=== PATIENT | male | born 1955 | race African-American/Black ===

== ENCOUNTER 2019-09-06 19:17 | Inpatient (IN) ==
[2019-09-06] MEDS ORDERED: methylPREDNISolone SOD SUC 125 MG/2 ML VIAL IV STA (19:44)
[2019-09-06] MEDS ORDERED: PIPERACILLIN/TAZOBACTAM 3,375 MG in SODIUM CHLORIDE 0.9% 100 ML IV STA (19:44)
[2019-09-06] MEDS ORDERED: VANCOMYCIN INJ 750 MG in SODIUM CHLORIDE 0.9% 250 ML IV STA (19:44)
[2019-09-06 19:58] LABS: Basophils # 0.1 10*3/uL (0.0-0.2); Basophils % 0.5 % (0.0-0.8); Eosinophils % 0.2 % (0.00-10.9); Hemoglobin 13.8 GM/DL (14.0-18.0); Immature Granulocytes % 0.4 %; Immature Granulocytes Absolute 0.06 #; Lymphocytes # 1.4 10*3/uL (1.4-4.0); Lymphocytes % 9.6 % (21.2-54.2); Mean Corpuscular HGB Conc 30.7 GM/DL (32-36); Mean Corpuscular Volume 95.1 FL (87-102); Mean Platelet Volume 9.7 FL (9.6-12.0); Neutrophils % 79.3 % (38.7-73.9); Platelet Count 291 T/CUMM (130-400); Red Blood Count 4.73 MC/CUMM (3.8-5.5); Red Cell Distribution Width 14.6 % (9.3-17.3); White Blood Count 14.8 T/CUMM (4-12)
[2019-09-06] MEDS ORDERED: ALBUTEROL NEB SOLN 5 MG/ML 20 ML/BOTTLE CONT NEB SCH (20:00)
[2019-09-06 20:18] LABS: Albumin 2.7 G/DL (3.4-5.0); Bilirubin,Total 0.7 MG/DL (0.2-1.0); Calcium 10.7 MG/DL (8.5-10.1); Osmolality,Calculated 291.8 MOS/KG (273-304); Total Protein 7.9 G/DL (6.4-8.3)
[2019-09-06 20:23] LABS: Troponin I 0.217 NG/ML (0.00-0.045)
[2019-09-06 20:30] LABS: PT Patient Result 10.7 SECS (9.6-12.2); Partial Thromboplastin Time 28.4 SECS (20.8-36.0)
[2019-09-06] MEDS ORDERED: CLOPIDOGREL 300 MG TABLET PO ONE (21:13)
[2019-09-06] MEDS ORDERED: CLOPIDOGREL 75 MG TABLET PO ONE (21:13)
[2019-09-06 21:47] LABS: Risk Ratio 2.8; Thyroid Stimulating Hormone 1.31 uIU/ml (0.358-3.74)
[2019-09-06] MEDS: ASPIRIN CHEW 81 MG TABLET PO SCH (22:28)
[2019-09-07] MEDS: ALBUTEROL/IPRATROPIUM 3 ML NEB RESP TX SCH ×4 (01:20→18:59)
[2019-09-07] MEDS: ENOXAPARIN 60 MG/0.6 ML SYRINGE SUBCUT SCH ×2 (01:30→14:01)
[2019-09-07] MEDS: PIPERACILLIN/TAZOBACTAM 3,375 MG in SODIUM CHLORIDE 0.9% 100 ML IV SCH ×3 (06:10→20:48)
[2019-09-07 06:15] LABS: Basophils % 0.1 % (0.0-0.8); Hematocrit 41.3 VOL% (42.0-52.0); Hemoglobin 12.5 GM/DL (14.0-18.0); Immature Granulocytes % 0.6 %; Immature Granulocytes Absolute 0.07 #; Lymphocytes # 0.4 10*3/uL (1.4-4.0); Lymphocytes % 3.3 % (21.2-54.2); Mean Corpuscular HGB Conc 30.3 GM/DL (32-36); Mean Corpuscular Volume 94.9 FL (87-102); Mean Platelet Volume 10.1 FL (9.6-12.0); Monocytes % 2.1 % (1.7-12.7); Neutrophils % 93.9 % (38.7-73.9); Platelet Count 339 T/CUMM (130-400); Red Blood Count 4.35 MC/CUMM (3.8-5.5); Red Cell Distribution Width 14.6 % (9.3-17.3); White Blood Count 12.2 T/CUMM (4-12)
[2019-09-07 06:35] LABS: Albumin 2.6 G/DL (3.4-5.0); Band Neutrophils 3 % (0-10); Bilirubin,Total 0.5 MG/DL (0.2-1.0); Calcium 10.5 MG/DL (8.5-10.1); Lymphocytes 1 % (20-55); Osmolality,Calculated 300.6 MOS/KG (273-304); Segmented Neutrophils 95 % (50-85); Total Cells Counted 100; Total Protein 7.8 G/DL (6.4-8.3)
[2019-09-07 06:36] LABS: Hypochromasia 1+; Macrocytosis Slight
[2019-09-07] MEDS ORDERED: INFLUENZA VIRUS VACCINE 0.5 ML SYRINGE IM ONE (07:42)
[2019-09-07] MEDS: MENTHOL/ZINC OXIDE OINT 71 GM JAR TOP SCH ×3 (09:22→20:55)
[2019-09-07 09:28] LABS: Troponin I 0.139 NG/ML (0.00-0.045)
[2019-09-07 11:10] LABS: Troponin I 0.118 NG/ML (0.00-0.045)
[2019-09-07 13:28] LABS: Apearance,Urine CLOUDY (Clear); Bilirubin,Urine Negative (Negative); Blood, Urine Negative (Negative); Glucose,Urine (UA) Negative (Negative); Ketones,Urine Negative (Negative); Mucus,Urine Occasional /LPF (Occasional); Nitrite,Urine Negative (Negative); Protein,Urine Negative; RBC,Urine <1 /HPF (0-4); Squamous Epithelial Cell,Urine Occasional /HPF (0-10); Urine Color Yellow (Yellow); Urine Urobilinogen < 2.0 EU/DL (0.2-1.0); WBC,Urine 3 /HPF (0-6)
[2019-09-07] MEDS: VANCOMYCIN INJ 1,000 MG in SODIUM CHLORIDE 0.9% 250 ML IV SCH (13:58)
[2019-09-07] MEDS: BACLOFEN 10 MG TABLET PO SCH ×2 (13:59→21:20)
[2019-09-07] MEDS: ASPIRIN CHEW 81 MG TABLET PO SCH (13:59)
[2019-09-07] MEDS: ZINC SULFATE 220 MG CAPSULE PO SCH (13:59)
[2019-09-07] MEDS: LISINOPRIL/HCTZ 20-25 MG TABLET PO SCH (13:59)
[2019-09-07] MEDS: PANTOPRAZOLE 40 MG TABLET PO SCH (14:00)
[2019-09-07] MEDS: METOPROLOL SUCCINATE XL 25 MG TABLET PO SCH (14:00)
[2019-09-07] MEDS: amLODIPine 5 MG TABLET PO SCH (16:12)
[2019-09-07] MEDS: SODIUM CHLORIDE 0.9% 1,000 ML IV SCH (20:49)
[2019-09-08] MEDS: VANCOMYCIN INJ 1,000 MG in SODIUM CHLORIDE 0.9% 250 ML IV SCH ×2 (00:05→12:24)
[2019-09-08] MEDS: ALBUTEROL/IPRATROPIUM 3 ML NEB RESP TX SCH ×4 (00:42→18:58)
[2019-09-08] MEDS: PIPERACILLIN/TAZOBACTAM 3,375 MG in SODIUM CHLORIDE 0.9% 100 ML IV SCH ×3 (05:10→22:41)
[2019-09-08 07:00] LABS: Basophils % 0.2 % (0.0-0.8); Hematocrit 37.4 VOL% (42.0-52.0); Hemoglobin 11.4 GM/DL (14.0-18.0); Immature Granulocytes % 0.8 %; Immature Granulocytes Absolute 0.15 #; Lymphocytes # 1.6 10*3/uL (1.4-4.0); Mean Corpuscular HGB Conc 30.5 GM/DL (32-36); Mean Corpuscular Volume 96.1 FL (87-102); Mean Platelet Volume 9.4 FL (9.6-12.0); Monocytes % 12.1 % (1.7-12.7); Neutrophils % 77.9 % (38.7-73.9); Platelet Count 322 T/CUMM (130-400); Red Blood Count 3.89 MC/CUMM (3.8-5.5); Red Cell Distribution Width 14.8 % (9.3-17.3); White Blood Count 17.7 T/CUMM (4-12)
[2019-09-08 07:20] LABS: Calcium 10.2 MG/DL (8.5-10.1); Osmolality,Calculated 308.7 MOS/KG (273-304)
[2019-09-08] MEDS: SODIUM CHLORIDE 0.9% 1,000 ML IV SCH (07:33)
[2019-09-08] MEDS ORDERED: POTASSIUM CHLORIDE 20 MEQ/15 ML UDCUP PO ONE (09:21)
[2019-09-08] MEDS ORDERED: POTASSIUM CHLORIDE 20 MEQ TABLET PO ONE ×2 (09:30→18:30)
[2019-09-08] MEDS: LISINOPRIL/HCTZ 20-25 MG TABLET PO SCH (10:05)
[2019-09-08] MEDS: BACLOFEN 10 MG TABLET PO SCH ×2 (10:06→22:41)
[2019-09-08] MEDS: ASPIRIN CHEW 81 MG TABLET PO SCH (10:06)
[2019-09-08] MEDS: PANTOPRAZOLE 40 MG TABLET PO SCH (10:06)
[2019-09-08] MEDS: ZINC SULFATE 220 MG CAPSULE PO SCH (10:06)
[2019-09-08] MEDS: amLODIPine 5 MG TABLET PO SCH (10:06)
[2019-09-08] MEDS: METOPROLOL SUCCINATE XL 25 MG TABLET PO SCH (10:07)
[2019-09-08] MEDS: DEXTROSE 5% 1,000 ML IV SCH (11:35)
[2019-09-08] MEDS: MENTHOL/ZINC OXIDE OINT 71 GM JAR TOP SCH ×3 (12:12→22:41)
[2019-09-09] MEDS: VANCOMYCIN INJ 1,000 MG in SODIUM CHLORIDE 0.9% 250 ML IV SCH (00:25)
[2019-09-09] MEDS: ALBUTEROL/IPRATROPIUM 3 ML NEB RESP TX SCH ×4 (01:48→20:03)
[2019-09-09] MEDS: PIPERACILLIN/TAZOBACTAM 3,375 MG in SODIUM CHLORIDE 0.9% 100 ML IV SCH ×3 (06:36→20:26)
[2019-09-09] MEDS: ZINC SULFATE 220 MG CAPSULE PO SCH (12:09)
[2019-09-09] MEDS: LISINOPRIL/HCTZ 20-25 MG TABLET PO SCH (12:09)
[2019-09-09] MEDS: ASPIRIN CHEW 81 MG TABLET PO SCH (12:09)
[2019-09-09] MEDS: MENTHOL/ZINC OXIDE OINT 71 GM JAR TOP SCH ×3 (12:09→20:26)
[2019-09-09] MEDS: BACLOFEN 10 MG TABLET PO SCH ×2 (12:10→20:32)
[2019-09-09] MEDS: PANTOPRAZOLE 40 MG TABLET PO SCH (12:11)
[2019-09-09] MEDS: DEXTROSE 5% 1,000 ML IV SCH (12:11)
[2019-09-09] MEDS: amLODIPine 5 MG TABLET PO SCH (12:11)
[2019-09-09] MEDS: METOPROLOL SUCCINATE XL 25 MG TABLET PO SCH (12:11)
[2019-09-09] MEDS: ROSUVASTATIN 20 MG TABLET PO SCH (15:41)
[2019-09-09] MEDS ORDERED: POTASSIUM CHLORIDE 20 MEQ/15 ML UDCUP PO ONE (17:32)
[2019-09-10] MEDS: ALBUTEROL/IPRATROPIUM 3 ML NEB RESP TX SCH ×4 (00:20→20:54)
[2019-09-10] MEDS: VANCOMYCIN INJ 1,000 MG in SODIUM CHLORIDE 0.9% 250 ML IV SCH ×2 (00:43→18:07)
[2019-09-10] MEDS: BACLOFEN 10 MG TABLET PO SCH ×3 (00:44→20:53)
[2019-09-10] MEDS: DEXTROSE 5% 1,000 ML IV SCH ×3 (02:25→21:32)
[2019-09-10 05:16] LABS: Basophils % 0.2 % (0.0-0.8); Hematocrit 38.5 VOL% (42.0-52.0); Hemoglobin 11.9 GM/DL (14.0-18.0); Immature Granulocytes Absolute 0.18 #; Lymphocytes # 1.4 10*3/uL (1.4-4.0); Lymphocytes % 7.6 % (21.2-54.2); Mean Corpuscular HGB Conc 30.9 GM/DL (32-36); Mean Corpuscular Volume 93.9 FL (87-102); Mean Platelet Volume 10.2 FL (9.6-12.0); Monocytes % 8.3 % (1.7-12.7); Neutrophils % 82.9 % (38.7-73.9); Platelet Count 338 T/CUMM (130-400); Red Cell Distribution Width 14.9 % (9.3-17.3); White Blood Count 18.2 T/CUMM (4-12)
[2019-09-10 05:52] LABS: Calcium 9.9 MG/DL (8.5-10.1)
[2019-09-10] MEDS: PIPERACILLIN/TAZOBACTAM 3,375 MG in SODIUM CHLORIDE 0.9% 100 ML IV SCH ×3 (06:00→21:09)
[2019-09-10 06:08] LABS: Albumin 2.3 G/DL (3.4-5.0); Bilirubin,Direct 0.17 MG/DL (0.0-0.20); Bilirubin,Indirect 0.7 MG/DL (0.0-1.0); Bilirubin,Total 0.9 MG/DL (0.2-1.0); Total Protein 6.5 G/DL (6.4-8.3)
[2019-09-10] MEDS: LISINOPRIL/HCTZ 20-25 MG TABLET PO SCH (10:44)
[2019-09-10] MEDS: ZINC SULFATE 220 MG CAPSULE PO SCH (10:44)
[2019-09-10] MEDS: ASPIRIN CHEW 81 MG TABLET PO SCH (10:45)
[2019-09-10] MEDS: amLODIPine 10 MG TABLET PO SCH (10:45)
[2019-09-10] MEDS: MENTHOL/ZINC OXIDE OINT 71 GM JAR TOP SCH ×3 (10:45→21:09)
[2019-09-10] MEDS: ROSUVASTATIN 20 MG TABLET PO SCH (10:45)
[2019-09-10] MEDS: PANTOPRAZOLE 40 MG TABLET PO SCH (10:46)
[2019-09-10] MEDS: METOPROLOL SUCCINATE XL 25 MG TABLET PO SCH (10:46)
[2019-09-10] MEDS: hydrALAZINE 20 MG/1 ML VIAL IV PRN (10:48)
[2019-09-10] MEDS ORDERED: POTASSIUM CHLORIDE 20 MEQ/15 ML UDCUP PO ONE (13:22)
[2019-09-11] MEDS: hydrALAZINE 20 MG/1 ML VIAL IV PRN (00:46)
[2019-09-11] MEDS: ALBUTEROL/IPRATROPIUM 3 ML NEB RESP TX SCH ×4 (01:57→20:20)
[2019-09-11 04:03] LABS: Basophils % 0.2 % (0.0-0.8); Eosinophils % 0.2 % (0.00-10.9); Hemoglobin 13.3 GM/DL (14.0-18.0); Immature Granulocytes % 1.9 %; Immature Granulocytes Absolute 0.34 #; Lymphocytes # 1.6 10*3/uL (1.4-4.0); Lymphocytes % 8.5 % (21.2-54.2); Mean Corpuscular HGB Conc 30.9 GM/DL (32-36); Mean Corpuscular Volume 93.3 FL (87-102); Mean Platelet Volume 9.8 FL (9.6-12.0); Monocytes % 7.1 % (1.7-12.7); Neutrophils % 82.1 % (38.7-73.9); Platelet Count 377 T/CUMM (130-400); Red Blood Count 4.61 MC/CUMM (3.8-5.5); Red Cell Distribution Width 15.2 % (9.3-17.3); White Blood Count 18.3 T/CUMM (4-12)
[2019-09-11 04:20] LABS: Calcium 10.5 MG/DL (8.5-10.1); Osmolality,Calculated 295.3 MOS/KG (273-304)
[2019-09-11] MEDS: PIPERACILLIN/TAZOBACTAM 3,375 MG in SODIUM CHLORIDE 0.9% 100 ML IV SCH ×3 (05:13→21:15)
[2019-09-11] MEDS: ZINC SULFATE 220 MG CAPSULE PO SCH (09:36)
[2019-09-11] MEDS: PANTOPRAZOLE 40 MG TABLET PO SCH (09:36)
[2019-09-11] MEDS: BACLOFEN 10 MG TABLET PO SCH ×2 (09:36→21:09)
[2019-09-11] MEDS: amLODIPine 10 MG TABLET PO SCH (09:36)
[2019-09-11] MEDS: ROSUVASTATIN 20 MG TABLET PO SCH (09:36)
[2019-09-11] MEDS: MENTHOL/ZINC OXIDE OINT 71 GM JAR TOP SCH ×3 (09:36→21:10)
[2019-09-11] MEDS: ASPIRIN CHEW 81 MG TABLET PO SCH (09:37)
[2019-09-11] MEDS: METOPROLOL SUCCINATE XL 25 MG TABLET PO SCH (09:38)
[2019-09-11] MEDS: LISINOPRIL/HCTZ 20-25 MG TABLET PO SCH (09:44)
[2019-09-11] MEDS: POTASSIUM CHLORIDE 20 MEQ TABLET PO PRN ×2 (09:51→13:20)
[2019-09-11] MEDS: ONDANSETRON 4 MG/2 ML VIAL IV PRN (09:51)
[2019-09-11] MEDS ORDERED: POTASSIUM CHLORIDE 20 MEQ/15 ML UDCUP PO ONE (10:24)
[2019-09-11] MEDS: VANCOMYCIN INJ 1,000 MG in SODIUM CHLORIDE 0.9% 250 ML IV SCH (12:02)
[2019-09-11] MEDS: POTASSIUM CHLORIDE 20 MEQ/15 ML UDCUP PO PRN ×3 (13:20→18:23)
[2019-09-11] MEDS: DEXTROSE 5% 1,000 ML IV SCH (18:22)
[2019-09-12] MEDS: ALBUTEROL/IPRATROPIUM 3 ML NEB RESP TX SCH ×4 (01:12→18:52)
[2019-09-12 04:18] LABS: Basophils % 0.2 % (0.0-0.8); Eosinophils # 0.1 10*3/uL (0.0-0.87); Eosinophils % 0.5 % (0.00-10.9); Hematocrit 40.9 VOL% (42.0-52.0); Immature Granulocytes % 1.2 %; Lymphocytes # 1.6 10*3/uL (1.4-4.0); Lymphocytes % 9.9 % (21.2-54.2); Mean Corpuscular HGB Conc 29.8 GM/DL (32-36); Mean Corpuscular Volume 96.2 FL (87-102); Mean Platelet Volume 9.5 FL (9.6-12.0); Monocytes % 8.2 % (1.7-12.7); Platelet Count 407 T/CUMM (130-400); Red Blood Count 4.25 MC/CUMM (3.8-5.5); Red Cell Distribution Width 15.3 % (9.3-17.3); White Blood Count 16.5 T/CUMM (4-12)
[2019-09-12 04:37] LABS: Calcium 9.9 MG/DL (8.5-10.1); Osmolality,Calculated 295.3 MOS/KG (273-304)
[2019-09-12] MEDS: PIPERACILLIN/TAZOBACTAM 3,375 MG in SODIUM CHLORIDE 0.9% 100 ML IV SCH ×3 (04:46→21:06)
[2019-09-12 05:16] LABS: Hemoglobin 12.3 GM/DL (14.0-18.0)
[2019-09-12] MEDS: ASPIRIN CHEW 81 MG TABLET PO SCH (08:34)
[2019-09-12] MEDS: ROSUVASTATIN 20 MG TABLET PO SCH (08:34)
[2019-09-12] MEDS: LISINOPRIL/HCTZ 20-25 MG TABLET PO SCH (08:34)
[2019-09-12] MEDS: POTASSIUM CHLORIDE 20 MEQ TABLET PO PRN (08:35)
[2019-09-12] MEDS: BACLOFEN 10 MG TABLET PO SCH ×2 (08:35→21:05)
[2019-09-12] MEDS: amLODIPine 10 MG TABLET PO SCH (08:35)
[2019-09-12] MEDS: METOPROLOL SUCCINATE XL 25 MG TABLET PO SCH (08:35)
[2019-09-12] MEDS: PANTOPRAZOLE 40 MG TABLET PO SCH (08:35)
[2019-09-12] MEDS: ZINC SULFATE 220 MG CAPSULE PO SCH (08:45)
[2019-09-12] MEDS: ONDANSETRON 4 MG/2 ML VIAL IV PRN (08:56)
[2019-09-12] MEDS: VANCOMYCIN INJ 1,000 MG in SODIUM CHLORIDE 0.9% 250 ML IV SCH (09:25)
[2019-09-12] MEDS: MENTHOL/ZINC OXIDE OINT 71 GM JAR TOP SCH ×3 (09:33→21:05)
[2019-09-12] MEDS: DEXTROSE 5% 1,000 ML IV SCH (21:35)
[2019-09-13] MEDS: VANCOMYCIN INJ 1,000 MG in SODIUM CHLORIDE 0.9% 250 ML IV SCH ×2 (00:26→17:48)
[2019-09-13] MEDS: ALBUTEROL/IPRATROPIUM 3 ML NEB RESP TX SCH ×4 (01:19→19:52)
[2019-09-13] MEDS: PIPERACILLIN/TAZOBACTAM 3,375 MG in SODIUM CHLORIDE 0.9% 100 ML IV SCH ×3 (04:59→21:17)
[2019-09-13 05:27] LABS: Basophils % 0.2 % (0.0-0.8); Eosinophils # 0.2 10*3/uL (0.0-0.87); Eosinophils % 1.3 % (0.00-10.9); Hematocrit 43.4 VOL% (42.0-52.0); Immature Granulocytes % 1.1 %; Immature Granulocytes Absolute 0.18 #; Lymphocytes # 1.8 10*3/uL (1.4-4.0); Lymphocytes % 10.7 % (21.2-54.2); Mean Corpuscular HGB Conc 29.5 GM/DL (32-36); Mean Corpuscular Volume 97.3 FL (87-102); Mean Platelet Volume 9.8 FL (9.6-12.0); Monocytes % 8.3 % (1.7-12.7); Neutrophils % 78.4 % (38.7-73.9); Platelet Count 414 T/CUMM (130-400); Red Blood Count 4.46 MC/CUMM (3.8-5.5); Red Cell Distribution Width 15.1 % (9.3-17.3)
[2019-09-13 05:28] LABS: Hemoglobin 12.8 GM/DL (14.0-18.0)
[2019-09-13 05:28] LABS: Calcium 9.9 MG/DL (8.5-10.1); Osmolality,Calculated 280.3 MOS/KG (273-304)
[2019-09-13] MEDS: ZINC SULFATE 220 MG CAPSULE PO SCH (09:30)
[2019-09-13] MEDS: ASPIRIN CHEW 81 MG TABLET PO SCH (09:30)
[2019-09-13] MEDS: ROSUVASTATIN 20 MG TABLET PO SCH (09:30)
[2019-09-13] MEDS: BACLOFEN 10 MG TABLET PO SCH ×2 (09:31→21:17)
[2019-09-13] MEDS: amLODIPine 10 MG TABLET PO SCH (09:31)
[2019-09-13] MEDS: PANTOPRAZOLE 40 MG TABLET PO SCH (09:31)
[2019-09-13] MEDS: LISINOPRIL/HCTZ 20-25 MG TABLET PO SCH (09:31)
[2019-09-13] MEDS: METOPROLOL SUCCINATE XL 25 MG TABLET PO SCH (09:32)
[2019-09-13] MEDS: MENTHOL/ZINC OXIDE OINT 71 GM JAR TOP SCH ×3 (10:15→21:17)
[2019-09-13] MEDS: DEXTROSE 5% 1,000 ML IV SCH (18:56)
[2019-09-14] MEDS: ALBUTEROL/IPRATROPIUM 3 ML NEB RESP TX SCH ×4 (01:25→19:18)
[2019-09-14] MEDS: PIPERACILLIN/TAZOBACTAM 3,375 MG in SODIUM CHLORIDE 0.9% 100 ML IV SCH ×2 (04:19→15:50)
[2019-09-14 04:41] LABS: PT Patient Result 11.1 SECS (9.6-12.2)
[2019-09-14 04:48] LABS: Basophils # 0.1 10*3/uL (0.0-0.2); Basophils % 0.3 % (0.0-0.8); Eosinophils # 0.1 10*3/uL (0.0-0.87); Eosinophils % 0.7 % (0.00-10.9); Hemoglobin 12.8 GM/DL (14.0-18.0); Immature Granulocytes % 1.9 %; Immature Granulocytes Absolute 0.41 #; Lymphocytes # 1.4 10*3/uL (1.4-4.0); Lymphocytes % 6.7 % (21.2-54.2); Mean Corpuscular Volume 92.2 FL (87-102); Mean Platelet Volume 9.9 FL (9.6-12.0); Monocytes % 6.5 % (1.7-12.7); Neutrophils % 83.9 % (38.7-73.9); Platelet Count 424 T/CUMM (130-400); Red Blood Count 4.34 MC/CUMM (3.8-5.5); Red Cell Distribution Width 14.6 % (9.3-17.3); White Blood Count 21.5 T/CUMM (4-12)
[2019-09-14 04:53] LABS: Eosinophils 2 % (0-10); Lymphocytes 8 % (20-55); Platelet Estimate Adequate; Segmented Neutrophils 87 % (50-85); Total Cells Counted 100
[2019-09-14] MEDS ORDERED: ETOMIDATE 20 MG/10 ML VIAL IV ONE (09:00)
[2019-09-14] MEDS ORDERED: LIDOCAINE 100 MG/5 ML SYRINGE ONE (09:00)
[2019-09-14] MEDS: LACTATED RINGERS 1,000 ML IV SCH (11:17)
[2019-09-14] MEDS: LISINOPRIL/HCTZ 20-25 MG TABLET PO SCH (13:07)
[2019-09-14] MEDS: MENTHOL/ZINC OXIDE OINT 71 GM JAR TOP SCH ×3 (13:08→20:37)
[2019-09-14] MEDS: ROSUVASTATIN 20 MG TABLET PO SCH (13:08)
[2019-09-14] MEDS: ZINC SULFATE 220 MG CAPSULE PO SCH (13:08)
[2019-09-14] MEDS: ASPIRIN CHEW 81 MG TABLET PO SCH (13:08)
[2019-09-14] MEDS: BACLOFEN 10 MG TABLET PO SCH ×2 (13:09→20:37)
[2019-09-14] MEDS: PANTOPRAZOLE 40 MG TABLET PO SCH (13:09)
[2019-09-14] MEDS: METOPROLOL SUCCINATE XL 25 MG TABLET PO SCH (13:09)
[2019-09-14] MEDS: amLODIPine 10 MG TABLET PO SCH (13:09)
[2019-09-14] MEDS: VANCOMYCIN INJ 1,000 MG in SODIUM CHLORIDE 0.9% 250 ML IV SCH (13:52)
[2019-09-15 04:24] LABS: Basophils # 0.1 10*3/uL (0.0-0.2); Basophils % 0.3 % (0.0-0.8); Eosinophils # 0.1 10*3/uL (0.0-0.87); Eosinophils % 0.4 % (0.00-10.9); Hematocrit 41.7 VOL% (42.0-52.0); Hemoglobin 12.8 GM/DL (14.0-18.0); Immature Granulocytes Absolute 0.22 #; Lymphocytes # 1.7 10*3/uL (1.4-4.0); Lymphocytes % 7.9 % (21.2-54.2); Mean Corpuscular HGB Conc 30.7 GM/DL (32-36); Mean Corpuscular Volume 93.1 FL (87-102); Mean Platelet Volume 9.6 FL (9.6-12.0); Monocytes % 8.1 % (1.7-12.7); Neutrophils % 82.3 % (38.7-73.9); Platelet Count 447 T/CUMM (130-400); Red Blood Count 4.48 MC/CUMM (3.8-5.5); Red Cell Distribution Width 14.8 % (9.3-17.3)
[2019-09-15 04:44] LABS: Calcium 9.7 MG/DL (8.5-10.1); Osmolality,Calculated 276.5 MOS/KG (273-304)
[2019-09-15 04:50] LABS: Hypochromasia 1+
[2019-09-15 04:51] LABS: Microcytosis Slight; Platelet Estimate Increased
[2019-09-15] MEDS: ALBUTEROL/IPRATROPIUM 3 ML NEB RESP TX SCH ×4 (06:52→19:40)
[2019-09-15] MEDS: POTASSIUM CHLORIDE 20 MEQ TABLET PO PRN ×4 (08:48→16:46)
[2019-09-15] MEDS: ASPIRIN CHEW 81 MG TABLET PO SCH (08:49)
[2019-09-15] MEDS: PANTOPRAZOLE 40 MG TABLET PO SCH (08:50)
[2019-09-15] MEDS: BACLOFEN 10 MG TABLET PO SCH ×2 (08:50→21:28)
[2019-09-15] MEDS: amLODIPine 10 MG TABLET PO SCH (08:50)
[2019-09-15] MEDS: METOPROLOL SUCCINATE XL 25 MG TABLET PO SCH (08:50)
[2019-09-15] MEDS: ROSUVASTATIN 20 MG TABLET PO SCH (08:51)
[2019-09-15] MEDS: MENTHOL/ZINC OXIDE OINT 71 GM JAR TOP SCH ×3 (08:52→21:28)
[2019-09-15] MEDS: ZINC SULFATE 220 MG CAPSULE PO SCH (08:55)
[2019-09-15] MEDS: LISINOPRIL/HCTZ 20-25 MG TABLET PO SCH (08:55)
[2019-09-15] MEDS: LACTATED RINGERS 1,000 ML IV SCH (09:50)
[2019-09-15 11:06] LABS: Prealbumin 14.1 MG/DL (20-40)
[2019-09-15] MEDS ORDERED: MAGNESIUM SULF RIDER 2 GM in PREMIX 1 EACH IV ONE (17:21)
[2019-09-16] MEDS: ALBUTEROL/IPRATROPIUM 3 ML NEB RESP TX SCH ×4 (00:25→19:16)
[2019-09-16] MEDS: POTASSIUM CHLORIDE 20 MEQ TABLET PO PRN (03:57)
[2019-09-16 04:32] LABS: Basophils # 0.1 10*3/uL (0.0-0.2); Basophils % 0.2 % (0.0-0.8); Eosinophils # 0.2 10*3/uL (0.0-0.87); Eosinophils % 0.9 % (0.00-10.9); Hematocrit 40.1 VOL% (42.0-52.0); Hemoglobin 12.3 GM/DL (14.0-18.0); Lymphocytes # 1.5 10*3/uL (1.4-4.0); Lymphocytes % 7.2 % (21.2-54.2); Mean Corpuscular HGB Conc 30.7 GM/DL (32-36); Mean Corpuscular Volume 92.4 FL (87-102); Mean Platelet Volume 9.6 FL (9.6-12.0); Monocytes % 7.1 % (1.7-12.7); Neutrophils % 83.6 % (38.7-73.9); Platelet Count 455 T/CUMM (130-400); Red Blood Count 4.34 MC/CUMM (3.8-5.5); Red Cell Distribution Width 14.6 % (9.3-17.3); White Blood Count 20.5 T/CUMM (4-12)
[2019-09-16 04:54] LABS: Eosinophils 1 % (0-10); Hypochromasia Slight; Lymphocytes 5 % (20-55); Platelet Estimate Adequate; Segmented Neutrophils 87 % (50-85); Total Cells Counted 100
[2019-09-16 04:55] LABS: Microcytosis Slight
[2019-09-16 05:00] LABS: Calcium 9.3 MG/DL (8.5-10.1); Osmolality,Calculated 278.7 MOS/KG (273-304); Prealbumin 14.2 MG/DL (20-40)
[2019-09-16] MEDS: LACTATED RINGERS 1,000 ML IV SCH (08:44)
[2019-09-16] MEDS: METOPROLOL SUCCINATE XL 25 MG TABLET PO SCH (09:08)
[2019-09-16] MEDS: BACLOFEN 10 MG TABLET PO SCH ×2 (09:08→21:06)
[2019-09-16] MEDS: PANTOPRAZOLE 40 MG TABLET PO SCH (09:08)
[2019-09-16] MEDS: LISINOPRIL/HCTZ 10-12.5 MG TABLET PO SCH (09:08)
[2019-09-16] MEDS: ZINC SULFATE 220 MG CAPSULE PO SCH (09:08)
[2019-09-16] MEDS: ROSUVASTATIN 20 MG TABLET PO SCH (09:08)
[2019-09-16] MEDS: MENTHOL/ZINC OXIDE OINT 71 GM JAR TOP SCH ×3 (09:09→21:07)
[2019-09-16] MEDS: ASPIRIN CHEW 81 MG TABLET PO SCH (09:10)
[2019-09-16] MEDS: VANCOMYCIN INJ 1,000 MG in SODIUM CHLORIDE 0.9% 250 ML IV SCH (11:41)
[2019-09-16] MEDS: ENOXAPARIN 40 MG/0.4 ML SYRINGE SUBCUT SCH (11:51)
[2019-09-16] MEDS: PIPERACILLIN/TAZOBACTAM 3,375 MG in SODIUM CHLORIDE 0.9% 100 ML IV SCH ×2 (12:55→21:06)
[2019-09-17] MEDS: ALBUTEROL/IPRATROPIUM 3 ML NEB RESP TX SCH ×4 (00:18→19:34)
[2019-09-17] MEDS: VANCOMYCIN INJ 1,000 MG in SODIUM CHLORIDE 0.9% 250 ML IV SCH (04:08)
[2019-09-17 05:12] LABS: Basophils # 0.1 10*3/uL (0.0-0.2); Basophils % 0.3 % (0.0-0.8); Eosinophils # 0.2 10*3/uL (0.0-0.87); Eosinophils % 1.1 % (0.00-10.9); Hematocrit 40.7 VOL% (42.0-52.0); Immature Granulocytes Absolute 0.18 #; Lymphocytes # 1.6 10*3/uL (1.4-4.0); Lymphocytes % 8.9 % (21.2-54.2); Mean Corpuscular HGB Conc 31.9 GM/DL (32-36); Mean Corpuscular Volume 89.8 FL (87-102); Mean Platelet Volume 9.8 FL (9.6-12.0); Monocytes % 7.8 % (1.7-12.7); Neutrophils % 80.9 % (38.7-73.9); Platelet Count 428 T/CUMM (130-400); Red Blood Count 4.53 MC/CUMM (3.8-5.5); Red Cell Distribution Width 14.6 % (9.3-17.3); White Blood Count 18.3 T/CUMM (4-12)
[2019-09-17] MEDS: PIPERACILLIN/TAZOBACTAM 3,375 MG in SODIUM CHLORIDE 0.9% 100 ML IV SCH ×3 (05:26→20:57)
[2019-09-17 05:48] LABS: Calcium 9.5 MG/DL (8.5-10.1); Osmolality,Calculated 270.1 MOS/KG (273-304)
[2019-09-17] MEDS: BACLOFEN 10 MG TABLET PO SCH ×2 (09:02→20:58)
[2019-09-17] MEDS: POTASSIUM CHLORIDE 20 MEQ TABLET PO PRN ×3 (09:02→14:47)
[2019-09-17] MEDS: ROSUVASTATIN 20 MG TABLET PO SCH (09:02)
[2019-09-17] MEDS: PANTOPRAZOLE 40 MG TABLET PO SCH (09:02)
[2019-09-17] MEDS: ASPIRIN CHEW 81 MG TABLET PO SCH (09:02)
[2019-09-17] MEDS: METOPROLOL SUCCINATE XL 25 MG TABLET PO SCH (09:02)
[2019-09-17] MEDS: LISINOPRIL/HCTZ 10-12.5 MG TABLET PO SCH (09:02)
[2019-09-17] MEDS: MENTHOL/ZINC OXIDE OINT 71 GM JAR TOP SCH ×3 (09:03→20:58)
[2019-09-17] MEDS: ZINC SULFATE 220 MG CAPSULE PO SCH (09:07)
[2019-09-17] MEDS: lisinopriL 10 MG TABLET PO SCH (11:13)
[2019-09-17] MEDS: ENOXAPARIN 40 MG/0.4 ML SYRINGE SUBCUT SCH (11:14)
[2019-09-18] MEDS: VANCOMYCIN INJ 1,000 MG in SODIUM CHLORIDE 0.9% 250 ML IV SCH (00:30)
[2019-09-18] MEDS: ALBUTEROL/IPRATROPIUM 3 ML NEB RESP TX SCH ×4 (00:51→19:11)
[2019-09-18] MEDS: PIPERACILLIN/TAZOBACTAM 3,375 MG in SODIUM CHLORIDE 0.9% 100 ML IV SCH ×3 (04:06→21:20)
[2019-09-18] MEDS: ZINC SULFATE 220 MG CAPSULE PO SCH (09:10)
[2019-09-18] MEDS: lisinopriL 10 MG TABLET PO SCH (09:10)
[2019-09-18] MEDS: ASPIRIN CHEW 81 MG TABLET PO SCH (09:10)
[2019-09-18] MEDS: BACLOFEN 10 MG TABLET PO SCH ×2 (09:10→21:21)
[2019-09-18] MEDS: METOPROLOL SUCCINATE XL 25 MG TABLET PO SCH (09:10)
[2019-09-18] MEDS: ROSUVASTATIN 20 MG TABLET PO SCH (09:10)
[2019-09-18] MEDS: PANTOPRAZOLE 40 MG TABLET PO SCH (09:10)
[2019-09-18] MEDS: MENTHOL/ZINC OXIDE OINT 71 GM JAR TOP SCH ×3 (09:12→21:21)
[2019-09-18] MEDS: ENOXAPARIN 40 MG/0.4 ML SYRINGE SUBCUT SCH (11:15)
[2019-09-18] MEDS: VANCOMYCIN INJ 750 MG in SODIUM CHLORIDE 0.9% 250 ML IV SCH (11:16)
[2019-09-19] MEDS: VANCOMYCIN INJ 750 MG in SODIUM CHLORIDE 0.9% 250 ML IV SCH ×2 (01:08→11:16)
[2019-09-19] MEDS: ALBUTEROL/IPRATROPIUM 3 ML NEB RESP TX SCH ×4 (02:10→18:40)
[2019-09-19] MEDS: PIPERACILLIN/TAZOBACTAM 3,375 MG in SODIUM CHLORIDE 0.9% 100 ML IV SCH ×3 (04:15→20:50)
[2019-09-19 04:51] LABS: Basophils # 0.1 10*3/uL (0.0-0.2); Basophils % 0.5 % (0.0-0.8); Eosinophils # 0.1 10*3/uL (0.0-0.87); Eosinophils % 0.9 % (0.00-10.9); Hematocrit 36.1 VOL% (42.0-52.0); Hemoglobin 11.8 GM/DL (14.0-18.0); Immature Granulocytes % 0.7 %; Lymphocytes # 1.9 10*3/uL (1.4-4.0); Lymphocytes % 12.3 % (21.2-54.2); Mean Corpuscular HGB Conc 32.7 GM/DL (32-36); Mean Corpuscular Volume 89.1 FL (87-102); Mean Platelet Volume 9.7 FL (9.6-12.0); Monocytes % 8.4 % (1.7-12.7); Neutrophils % 77.2 % (38.7-73.9); Platelet Count 420 T/CUMM (130-400); Red Blood Count 4.05 MC/CUMM (3.8-5.5); Red Cell Distribution Width 14.8 % (9.3-17.3)
[2019-09-19 05:00] LABS: PT Patient Result 11.1 SECS (9.6-12.2)
[2019-09-19 05:04] LABS: Calcium 9.3 MG/DL (8.5-10.1); Osmolality,Calculated 268.1 MOS/KG (273-304)
[2019-09-19 05:15] LABS: Prealbumin 15.5 MG/DL (20-40)
[2019-09-19] MEDS ORDERED: diphenhydrAMINE 50 MG/1 ML VIAL IM ONE (08:00)
[2019-09-19] MEDS ORDERED: LIDOCAINE 1% 20 ML VIAL MISC INJ ONE (08:30)
[2019-09-19] MEDS ORDERED: LIDOCAINE 2% VISCOUS 100 ML BOTTLE SWISH/SPIT ONE (08:30)
[2019-09-19] MEDS ORDERED: LIDOCAINE 2% 20 ML VIAL RESP TX ONE (08:30)
[2019-09-19] MEDS ORDERED: MIDAZOLAM 2 MG/2 ML VIAL ONE (08:43)
[2019-09-19] MEDS: MENTHOL/ZINC OXIDE OINT 71 GM JAR TOP SCH ×3 (10:11→22:00)
[2019-09-19] MEDS: ZINC SULFATE 220 MG CAPSULE PO SCH (10:11)
[2019-09-19] MEDS: ASPIRIN CHEW 81 MG TABLET PO SCH (10:11)
[2019-09-19] MEDS: lisinopriL 10 MG TABLET PO SCH (10:12)
[2019-09-19] MEDS: METOPROLOL SUCCINATE XL 25 MG TABLET PO SCH (10:12)
[2019-09-19] MEDS: BACLOFEN 10 MG TABLET PO SCH ×2 (10:12→20:51)
[2019-09-19] MEDS: PANTOPRAZOLE 40 MG TABLET PO SCH (10:12)
[2019-09-19] MEDS: ROSUVASTATIN 20 MG TABLET PO SCH (10:12)
[2019-09-19] MEDS: ENOXAPARIN 40 MG/0.4 ML SYRINGE SUBCUT SCH (10:59)
[2019-09-19] MEDS ORDERED: MAGNESIUM SULF RIDER 2 GM in PREMIX 1 EACH IV ONE (13:39)
[2019-09-20] MEDS: VANCOMYCIN INJ 750 MG in SODIUM CHLORIDE 0.9% 250 ML IV SCH (01:10)
[2019-09-20] MEDS: PIPERACILLIN/TAZOBACTAM 3,375 MG in SODIUM CHLORIDE 0.9% 100 ML IV SCH (04:29)
[2019-09-20] MEDS: ALBUTEROL/IPRATROPIUM 3 ML NEB RESP TX SCH ×3 (07:22→12:38)
[2019-09-20] MEDS ORDERED: MAGNESIUM SULF RIDER 2 GM in PREMIX 1 EACH IV ONE (08:01)
[2019-09-20] MEDS: PANTOPRAZOLE 40 MG TABLET PO SCH (09:51)
[2019-09-20] MEDS: ASPIRIN CHEW 81 MG TABLET PO SCH (09:51)
[2019-09-20] MEDS: MENTHOL/ZINC OXIDE OINT 71 GM JAR TOP SCH ×2 (09:51→15:34)
[2019-09-20] MEDS: BACLOFEN 10 MG TABLET PO SCH (09:51)
[2019-09-20] MEDS: lisinopriL 10 MG TABLET PO SCH (09:51)
[2019-09-20] MEDS: METOPROLOL SUCCINATE XL 25 MG TABLET PO SCH (09:51)
[2019-09-20] MEDS: ZINC SULFATE 220 MG CAPSULE PO SCH (09:51)
[2019-09-20] MEDS: ROSUVASTATIN 20 MG TABLET PO SCH (09:51)
[2019-09-20] MEDS ORDERED: LEVOFLOXACIN 500 MG TABLET PO SCH (11:00)
[2019-09-20] MEDS: ENOXAPARIN 40 MG/0.4 ML SYRINGE SUBCUT SCH (11:45)
[2019-09-20 12:04] VITALS: BP 124/74
== END 2019-09-20 16:16 | disposition home or self-care (01) | DRG 177 ==
LOC: EDUNIT# → EDBD → N.ED 19:17 → SUATTDRO 09-07 04:26 → N.EDINP 09-07 04:26 → N.TELES 09-07 04:50 → N.TELEN 09-17 16:51 → N.5E 09-19 16:05
PROVIDERS: ADMIT Emergency Medicine; ATTEND Family Medicine
PROC: EGDWPEG (ICD-10-PCS; 2019-09-14 10:35)

== ENCOUNTER 2019-10-02 14:20 | Inpatient (IN) ==
[2019-10-02 15:13] LABS: ABG Base Excess 4.6 MMOL/L (-2.5-2.5); ABG HCO3 28.4 MMOL/L (20-26); ABG Oxygen Saturation 94.9 % (95-100); ABG PCO2 33.7 MM HG (35-48); ABG PH 7.516 (7.35-7.45); ABG PO2 73.1 MM HG (80-95); ABG TCO2 23.9 MMOL/L (23-27)
[2019-10-02 15:34] LABS: Basophils # 0.1 10*3/uL (0.0-0.2); Basophils % 0.3 % (0.0-0.8); Eosinophils % 0.1 % (0.00-10.9); Hematocrit 36.2 VOL% (42.0-52.0); Hemoglobin 11.9 GM/DL (14.0-18.0); Immature Granulocytes % 0.6 %; Immature Granulocytes Absolute 0.12 #; Lymphocytes # 1.4 10*3/uL (1.4-4.0); Lymphocytes % 7.1 % (21.2-54.2); Mean Corpuscular HGB Conc 32.9 GM/DL (32-36); Mean Corpuscular Volume 87.4 FL (87-102); Mean Platelet Volume 9.1 FL (9.6-12.0); Monocytes % 9.5 % (1.7-12.7); Neutrophils % 82.4 % (38.7-73.9); Platelet Count 281 T/CUMM (130-400); Red Blood Count 4.14 MC/CUMM (3.8-5.5); Red Cell Distribution Width 14.9 % (9.3-17.3); White Blood Count 20.1 T/CUMM (4-12)
[2019-10-02 15:47] LABS: INR 1.1; PT Patient Result 11.9 SECS (9.8-11.9)
[2019-10-02 15:55] LABS: Lymphocytes 7 % (20-55); Platelet Estimate Adequate; Segmented Neutrophils 84 % (50-85); Total Cells Counted 100
[2019-10-02] MEDS ORDERED: CEFEPIME 1,000 MG in SODIUM CHLORIDE 0.9% 100 ML IV STA (15:56)
[2019-10-02] MEDS ORDERED: VANCOMYCIN INJ 1,000 MG in SODIUM CHLORIDE 0.9% 250 ML IV STA (15:56)
[2019-10-02 15:57] LABS: Alanine Aminotransferase 177 U/L (16-61); Albumin 2.5 G/DL (3.4-5.0); Alkaline Phosphatase 224 U/L (45-117); Aspartate Amino Transferase 128 U/L (0-37); Blood Urea Nitrogen 35 MG/DL (7-18); Calcium 9.6 MG/DL (8.5-10.1); Estimated Glom Filtration Rate 77 ML/MIN; Glucose 103 MG/DL (74-106); Osmolality,Calculated 265.9 MOS/KG (273-304); Total Protein 6.8 G/DL (6.4-8.3); Troponin I < 0.015 NG/ML (0.00-0.045)
[2019-10-02] MEDS ORDERED: SODIUM CHLORIDE 0.9% 1,000 ML IV STA (16:03)
[2019-10-02] MEDS ORDERED: LORazepam 2 MG/1 ML VIAL IV PRN (16:51)
[2019-10-02 17:06] LABS: Ferritin 1592.3 ng/ml (26-388)
[2019-10-02] MEDS: fentaNYL 25 MCG/HR PATCH TRANSDERM SCH (18:37)
[2019-10-02] MEDS: MORPHINE 4 MG/1 ML VIAL IV PRN (22:42)
[2019-10-03] MEDS: MORPHINE 4 MG/1 ML VIAL IV PRN (02:25)
[2019-10-04] MEDS: MORPHINE 4 MG/1 ML VIAL IV PRN ×2 (00:32→10:55)
[2019-10-05] MEDS: MORPHINE 4 MG/1 ML VIAL IV PRN (01:39)
[2019-10-05] MEDS: fentaNYL 25 MCG/HR PATCH TRANSDERM SCH (08:35)
[2019-10-05 11:07] VITALS: BP 109/88
== END 2019-10-05 11:35 | DRG 193 ==
LOC: SUATTDRO → N.ED 14:20 → SUATTDRO 16:53 → N.EDINP 16:53 → N.2E 17:41
PROVIDERS: ADMIT Family Medicine; ATTEND Internal Medicine